=== PATIENT | female | born 1960 | race Caucasian/White ===

== ENCOUNTER → 2024-12-24 06:55 | Outpatient (REF) | payer MEDICARE, OTHER, SELFPAY ==
--- NOTE | 2024-12-24 09:07 | OID.BR.INTR ---
ANDRÉ[facility] Breast Navigator - Initial
- -
Date of Contact: 12/24/24
Met with patient. Patient given written information on navigator service available at [facility]. Will follow up as needed per protocol.
== END ==
LOC: WDC 06:55
DX: R92.1 Mammographic calcification found on diagnostic imaging of breast (principal); N63.20 Unspecified lump in the left breast, unspecified quadrant
CPT/HCPCS: 19081; 76098; 88305; 88341; 88342; 88360; A4648

== ENCOUNTER → 2025-01-22 08:44 | Outpatient (REF) | payer MEDICARE, OTHER, SELFPAY | LOC: WDC 08:44 | PROVIDERS: ATTENDING PHYSICIAN Surgery | DX: D05.12 Intraductal carcinoma in situ of left breast (principal) | CPT/HCPCS: 19281; A4648 ==

== ENCOUNTER 2025-01-24 06:36 | Day surgery (SDC) | payer MEDICARE, OTHER, SELFPAY ==
[2025-01-16 13:58] VITALS: BMI 29.3
[2025-01-24 09:30] VITALS: BP 118/74
[2025-01-24 09:50] VITALS: BMI 29.3
[2025-01-24] MEDS: TYLENOL 1000 MG PO (10:02)
[2025-01-24] MEDS: NORMOSOL-R/PLASMALYTE-A 1000 IV (10:02)
[2025-01-24] MEDS: LOVENOX 40 MG SC (10:55)
--- NOTE | 2025-01-24 13:04 | W.IMMPOSTOP ---
Surgical Immed Post Op Note
-
Primary Surgeon: Ren
Assisting Surgeon: None
Pre-op Diagnosis: Left breast DCIS
Post-op Diagnosis: Left breast DCIS
Procedure Performed: Left localized lumpectomy
Anesthesia Type: LMA general
Specimen / Cultures: Left lumpectomy and margins
Estimated Blood Loss: 6cc
Complications: None
Operative Findings: Clip, reflector, and calcifications in specimen
--- NOTE | 2025-01-24 13:05 | OR.RPT ---
Operative Report
Operative Report
Date of procedure: 01/24/2025
Surgeon: Ren
Preoperative diagnosis: Left breast DCIS
Postoperative diagnosis: Left breast DCIS
Procedure: Left localized lumpectomy
The patient is a 64-year-old female who had an interval change on screening mammography revealing indeterminant calcifications of the left breast. She underwent stereotactic core biopsy showing DCIS. Calcifications were over an extensive area
greater than 5 cm in longest direction; the patient understood that there would be a risk of not clearing the calcifications to acceptable margins by performing a lumpectomy but she is accepting of the risk and understanding that if not achieved,
then mastectomy would be recommended.
On the day prior to the procedure the patient presented to the [facility] where a Gayle reflector was placed in the majority of the calcifications. On the day of the procedure, she presented to the same-day surgical services unit.
She was prepped and she verified site and procedure. She was taken to the operating room. DVT and antibiotic prophylaxis have been provided. In the supine position intravenous sedation was delivered but was converted to an LMA mask general
anesthesia when the patient began to ask experience unremitting coughing. Left breast was prepped and draped in usual sterile fashion and appropriate timeout was performed by all staff members.
All tissues were anesthetized with 1% lidocaine plain and a curvilinear incision was made in the skin line overlying the area of highest Gayle signal. Skin flaps were elevated in the oncoplastic plane and dissection was carried down to the
appropriate area to be resected. In a radial fashion wide lumpectomy was performed using a cautery. Time out of body was noted and the specimen was oriented for the pathologist. There was a strong Gayle signal within it. Specimen radiography
confirmed the presence of biopsy clip, reflector, and extensive calcifications within it. Additional margins were harvested for permanent analysis from the posterior, medial, superior, lateral, inferior, and anterior dimensions. These were
oriented as well.
Hemostasis was carefully maintained. Marcaine 0.5% plain was instilled into all tissues and hemoclips were placed in the resection cavity. The wound was closed using simple interrupted 2-0 Polysorb on deep and intermediate tissue. Subcutaneous
tissue was closed with simple interrupted 3-0 Polysorb and skin was closed with a running subcuticular 4-0 Monocryl. Surgical glue and a sterile compressive dressing were applied. All sponge needle and instrument counts were correct and the
patient was transferred to the same-day surgical services unit for recovery
([id number])
[2025-01-24 13:07] VITALS: BP 118/74; BP 119/78
[2025-01-24 13:15] VITALS: BP 145/78
[2025-01-24] MEDS: DILAUDID 0.25 MG IV (13:17)
[2025-01-24 13:30] VITALS: BP 154/86
[2025-01-24 13:45] VITALS: BP 130/95
[2025-01-24 14:00] VITALS: BP 139/82
[2025-01-24] MEDS: ROXICODONE 5 MG PO (14:54)
== END 2025-01-24 15:15 | disposition home or self-care (01) ==
LOC: SDS 06:36
PROVIDERS: ATTENDING PHYSICIAN Surgery
DX: D05.12 Intraductal carcinoma in situ of left breast (principal)
CPT/HCPCS: 19301; 76098; 88305; 88307; 88341; 88342